=== PATIENT | female | born 1985 | race American Indian/Alaskan Native ===

== ENCOUNTER 2017-04-10 13:43 | Emergency (ER) | payer SELFPAY ==
[2017-04-10 13:49] VITALS: BP 114/78
--- NOTE | 2017-04-10 15:36 | Emergency Department Report ---
Blank Doc - Documentation Documentation: Patient is a 32-year-old female nonsmoker who is presenting with cough cold congestion for the past 5 days. Patient states cough is productive of clear sputum. She is patient has mild shortness of breath. Patient also is complaining of mild sore throat that hurts more when she coughs and ear pressure. Patient denies any nausea vomiting diarrhea chest pain abdominal pain at this time.
--- NOTE | 2017-04-10 16:45 | XRay Report ---
FINAL REPORT PROCEDURE: XR CHEST ROUTINE 2V TECHNIQUE: PA and lateral chest radiographs were obtained. CPT 12661 HISTORY: Cough. COMPARISON: No prior studies are available for comparison. FINDINGS: Heart: Normal. Mediastinum/Vessels: Normal. Lungs/Pleural space: Normal. Bony thorax: No acute osseous abnormality. Other: IMPRESSION: No radiographic evidence of acute cardiopulmonary disease.
--- NOTE | 2017-04-10 17:01 | Emergency Department Report ---
Minor Respiratory - HPI Chief Complaint: Upper Respiratory Infection Stated Complaint: CONSTANT COUGH, CLOGGED EARS, SORE THROAT/ CHEST Time Seen by Provider: 04/10/17 15:30 Duration: 5 Days Minor Respiratory: Yes Sore Throat, Yes Able to Tolerate Fluids, Yes Ear Pain, Yes Cough, No Rhinorrhea Other History: Patient is a 32-year-old female nonsmoker who is presenting with cough cold congestion for the past 5 days. Patient states cough is productive of clear sputum. She is patient has mild shortness of breath. Patient also is complaining of mild sore throat that hurts more when she coughs and ear pressure. Patient denies any nausea vomiting diarrhea chest pain abdominal pain at this time ED Review of Systems ROS: Stated complaint: CONSTANT COUGH, CLOGGED EARS, SORE THROAT/ CHEST Other details as noted in HPI Comment: All other systems reviewed and negative ED Past Medical Hx - Past Medical History Previous Medical History?: No - Surgical History Additional Surgical History: tonsilectomy - Social History Smoking Status: Never Smoker Substance Use Type: None - Medications Home Medications: Home Medications Medication Instructions Recorded Confirmed Last Taken Type ALBUTEROL Inhaler [ProAir HFA 2 puff IH QID PRN #1 inhalation 04/10/17 Unknown Rx Inhaler] Azithromycin [Zithromax Z-BIANCA] 250 mg PO DAILY #6 tablet 04/10/17 Unknown Rx predniSONE [Deltasone] 20 mg PO QDAY #5 tab 04/10/17 Unknown Rx Minor Respiratory Exam - Exam General: Vital signs noted. No distress. Alert and acting appropriately. HEENT: Yes Moist Mucous Membranes, No Pharyngeal Erythema, No Pharyngeal Exudates, No Rhinorrhea, No Conjuctival Injection, No Frontal Tenderness, No Maxillary Tenderness Ear: Neither TM Bulge, Neither TM Erythema, Neither EAC Pain, Neither EAC Discharge Neck: Yes Supple, No Adenopathy Lungs: Yes Good Air Exchange, No Wheezes, No Ronchi, No Stridor, No Cough, No Labored Respirations, No Retractions, No Use of Accessory Muscles, No Other Abnormal Lung Sounds Heart: Yes Regular, No Murmur Abdomen: Yes Normal Bowel Sounds, No Tenderness, No Peritoneal Signs Skin: No Rash, No Edema Neurologic: Alert and oriented, no deficits. Musculoskeletal: Unremarkable. ED Course Vital Signs 04/10/17 04/10/17 04/10/17 13:45 13:49 13:50 Temperature 98.5 F 98.5 F Pulse Rate 102 H Respiratory 16 Rate Blood Pressure 114/78 O2 Sat by Pulse 91 Oximetry ED Medical Decision Making - Radiology Data Radiology results: image reviewed no acute process Critical care attestation.: If time is entered above; I have spent that time in minutes in the direct care of this critically ill patient, excluding procedure time. ED Disposition Clinical Impression: Acute bronchitis Qualifiers: Bronchitis organism: unspecified organism Qualified Code(s): J20.9 - Acute bronchitis, unspecified Disposition: DC- TO HOME OR SELFCARE Is pt being admited?: No Does the pt Need Aspirin: No Condition: Stable Instructions: Acute Bronchitis (ED) Prescriptions: ALBUTEROL Inhaler [ProAir HFA Inhaler] 2 puff IH QID PRN #1 inhalation PRN Reason: Shortness Of Breath Azithromycin [Zithromax Z-BIANCA] 250 mg PO DAILY #6 tablet predniSONE [Deltasone] 20 mg PO QDAY #5 tab Referrals: PRIMARY CARE, [Primary Care Provider] - 3-5 Days
== END 2017-04-10 17:27 | disposition home or self-care (01) ==
LOC: ED 13:43
DX: J20.9 Acute bronchitis, unspecified (principal); Z90.89 Acquired absence of other organs
CPT/HCPCS: 71046